=== PATIENT | female | born 1950 | race Caucasian/White ===

== ENCOUNTER 2016-09-06 14:34 | Inpatient (IN) | payer MEDICARE ==
[~2016-09-06] VITALS: Ht 152.4 cm; Wt 95.5 kg
[~2016-09-06 14:34] MED LIST: HYDR-3138 PO; MESA500C PO; MORP100S3 PO; OMEP40CA6 PO; PARO10TA3 PO; POTA10TA5 PO; WARF5TAB7 PO
[2016-09-06] MEDS: MORPHINE SULFATE 4 MG/ML, 1ML IV PRN ×2 (16:51→23:16)
[2016-09-06] MEDS: LORazepam 2 MG/ML, 1ML IV PRN (17:54)
[2016-09-06 17:59] LABS: ASPARTATE AMINO TRANSFERASE 50 U/L (15-37); BLOOD UREA NITROGEN 14 mg/dL (7-18)
[2016-09-06] MEDS: D5%-0.45NACL+KCL 20MEQ 1,000 ML IV SCH (18:15)
[2016-09-06 20:21] VITALS: BP 124/77
[2016-09-06] MEDS ORDERED: LIDOCAINE GEL 2%, 5ML TP ONE (22:30)
[2016-09-06] MEDS ORDERED: LORazepam 2 MG/ML, 1ML IVPush ONE (22:30)
[2016-09-07 02:45] VITALS: BP 127/71
[2016-09-07] MEDS: D5%-0.45NACL+KCL 20MEQ 1,000 ML IV SCH ×3 (04:38→15:43)
[2016-09-07] MEDS: MORPHINE SULFATE 4 MG/ML, 1ML IV PRN ×3 (04:39→18:10)
[2016-09-07] MEDS: LORazepam 2 MG/ML, 1ML IV PRN ×3 (04:39→22:07)
[2016-09-07] MEDS ORDERED: SODIUM CHLORIDE 0.9%, 500ML IVBOLUS ONE (05:30)
[2016-09-07 07:25] VITALS: BP 122/66
[2016-09-07] MEDS ORDERED: BENZOCAINE AEROSOL SPRAY 20%, 60ML TP PRN (10:00)
[2016-09-07 13:50] VITALS: BP 115/65
[2016-09-07 19:28] VITALS: BP 128/67
[2016-09-08 00:25] VITALS: BP 120/56
[2016-09-08] MEDS: MORPHINE SULFATE 4 MG/ML, 1ML IV PRN ×4 (00:45→20:27)
[2016-09-08] MEDS: D5%-0.45NACL+KCL 20MEQ 1,000 ML IV SCH ×2 (02:24→13:24)
[2016-09-08 06:01] LABS: BLOOD UREA NITROGEN 4 mg/dL (7-18)
[2016-09-08 07:54] VITALS: BP 121/72
[2016-09-08] MEDS: LORazepam 2 MG/ML, 1ML IV PRN ×2 (08:10→15:48)
[2016-09-08 14:28] VITALS: BP 140/79
[2016-09-08] MEDS ORDERED: TPN PER PHARMACY IV SCH (15:00)
[2016-09-08] MEDS ORDERED: DEXTROSE 50%, 50ML SYRINGE IVPush PRN (17:00)
[2016-09-08] MEDS ORDERED: DEXTROSE 10% 500 ML IV PRN (17:00)
[2016-09-08] MEDS: FILTER, DISP 1.2 MICRON FOR TPN/PVN IV PRN (17:11)
[2016-09-08] MEDS: D5%-0.45% NACL 1,000 ML IV SCH (17:11)
[2016-09-08] MEDS: [UNRECOGNIZED DRUG - OTHER] IV SCH (17:12)
[2016-09-08] MEDS: DEXTROSE 70% IV SCH (17:12)
[2016-09-08] MEDS: FAT EMULSIONS IV SCH (17:12)
[2016-09-08] MEDS: AMINO ACID 10% IV SCH (17:12)
[2016-09-08 20:19] VITALS: BP 143/72
[2016-09-09] MEDS: LORazepam 2 MG/ML, 1ML IV PRN ×3 (00:34→17:00)
[2016-09-09] MEDS: INSULIN REGULAR LOW DOSE Q6H X 48HRS SQ-INSULIN SCH ×4 (00:40→21:00)
[2016-09-09] MEDS: MORPHINE SULFATE 4 MG/ML, 1ML IV PRN ×4 (03:16→22:00)
[2016-09-09 03:23] VITALS: BP 134/68
[2016-09-09 06:20] LABS: ASPARTATE AMINO TRANSFERASE 49 U/L (15-37); BLOOD UREA NITROGEN 4 mg/dL (7-18)
[2016-09-09 10:19] LABS: BLOOD UREA NITROGEN 4 mg/dL (7-18)
[2016-09-09] MEDS: FAT EMULSIONS IV SCH (17:00)
[2016-09-09] MEDS: DEXTROSE 70% IV SCH (17:00)
[2016-09-09] MEDS: [UNRECOGNIZED DRUG - OTHER] IV SCH (17:00)
[2016-09-09] MEDS: AMINO ACID 10% IV SCH (17:00)
[2016-09-09] MEDS: FILTER, DISP 1.2 MICRON FOR TPN/PVN IV PRN (17:15)
[2016-09-10] MEDS: LORazepam 2 MG/ML, 1ML IV PRN ×3 (01:30→17:46)
[2016-09-10] MEDS: INSULIN REGULAR LOW DOSE Q6H X 48HRS SQ-INSULIN SCH ×4 (03:00→15:00)
[2016-09-10] MEDS: MORPHINE SULFATE 4 MG/ML, 1ML IV PRN ×4 (05:00→23:37)
[2016-09-10 13:15] VITALS: BP 131/82
[2016-09-10] MEDS: D5%-0.45% NACL 1,000 ML IV SCH (14:42)
[2016-09-10] MEDS ORDERED: FAT EMULSIONS IV SCH (17:00)
[2016-09-10] MEDS ORDERED: AMINO ACID 10% IV SCH (17:00)
[2016-09-10] MEDS ORDERED: [UNRECOGNIZED DRUG - OTHER] IV SCH (17:00)
[2016-09-10] MEDS ORDERED: DEXTROSE 70% IV SCH (17:00)
[2016-09-10] MEDS ORDERED: FILTER, DISP 1.2 MICRON FOR TPN/PVN IV SCH (17:00)
[2016-09-10 19:22] VITALS: BP 138/77
[2016-09-11 02:20] VITALS: BP 120/67
[2016-09-11] MEDS: LORazepam 2 MG/ML, 1ML IV PRN ×3 (04:06→20:27)
[2016-09-11 05:03] LABS: BLOOD UREA NITROGEN 15 mg/dL (7-18)
[2016-09-11] MEDS: MORPHINE SULFATE 4 MG/ML, 1ML IV PRN ×3 (05:54→17:56)
[2016-09-11 07:08] VITALS: BP 111/58
[2016-09-11] MEDS: INSULIN REGULAR LOW DOSE QDAY SQ-INSULIN SCH (09:00)
[2016-09-11 12:37] VITALS: BP 123/75
[2016-09-11] MEDS ORDERED: AMINO ACID 10% IV SCH (17:00)
[2016-09-11] MEDS ORDERED: FILTER, DISP 1.2 MICRON FOR TPN/PVN IV SCH (17:00)
[2016-09-11] MEDS ORDERED: [UNRECOGNIZED DRUG - OTHER] IV SCH (17:00)
[2016-09-11] MEDS ORDERED: DEXTROSE 70% IV SCH (17:00)
[2016-09-11] MEDS ORDERED: FAT EMULSIONS IV SCH (17:00)
[2016-09-11] MEDS ORDERED: ENOXAPARIN 80 MG/0.8 ML SQ ONE (18:00)
[2016-09-11 20:06] VITALS: BP 102/64
[2016-09-11] MEDS: D5%-0.45% NACL 1,000 ML IV SCH (20:38)
[2016-09-12] MEDS: MORPHINE SULFATE 4 MG/ML, 1ML IV PRN ×2 (00:22→06:19)
[2016-09-12 03:55] VITALS: BP 109/68
[2016-09-12] MEDS: LORazepam 2 MG/ML, 1ML IV PRN (04:16)
[2016-09-12] MEDS ORDERED: BUPIVACAINE/PF-EPI 0.25% 1:200K ONE (07:14)
[2016-09-12] MEDS ORDERED: MIDAZOLAM 1 MG/ML, 2ML ONE (07:20)
[2016-09-12] MEDS ORDERED: KETAMINE 10 MG/ML, 20ML ONE (07:20)
[2016-09-12] MEDS ORDERED: FENTANYL PF 250 MCG/5ML ONE ×2 (07:21→10:17)
[2016-09-12] MEDS ORDERED: ONDANSETRON 2MG/ML, 2ML ONE (07:39)
[2016-09-12] MEDS ORDERED: PROPOFOL 10 MG/ML, 20ML ONE (07:39)
[2016-09-12] MEDS ORDERED: SUCCINYLCHOLINE 20 MG/ML, 10ML ONE (07:39)
[2016-09-12] MEDS ORDERED: EPHEDRINE 50 MG/ML, 1ML ONE (07:39)
[2016-09-12] MEDS ORDERED: ROCURONIUM 10 MG/ML ONE (07:39)
[2016-09-12] MEDS ORDERED: DEXAMETHASONE 4 MG/ML, 1ML ONE (07:39)
[2016-09-12] MEDS ORDERED: CEFOTETAN 1 GM ONE (07:39)
[2016-09-12] MEDS ORDERED: CEFOTETAN 2 GM ONE (07:39)
[2016-09-12] MEDS ORDERED: GLYCOPYRROLATE 0.2MG/1ML ONE (07:39)
[2016-09-12] MEDS ORDERED: LABETALOL 5MG/ML, 20ML ONE (07:39)
[2016-09-12] MEDS ORDERED: NEOSTIGMINE 1 MG/ML, 10ML ONE (07:39)
[2016-09-12] MEDS ORDERED: PHENYLEPHRINE 10 MG/ML ONE (07:39)
[2016-09-12] MEDS ORDERED: HYDROmorphone 1 MG/ML, 1ML ONE ×2 (08:15→11:03)
[2016-09-12] MEDS: INSULIN REGULAR LOW DOSE QDAY SQ-INSULIN SCH ×2 (09:00→09:07)
[2016-09-12] MEDS ORDERED: HEPARIN 5,000 UNITS/ML, 1ML ONE (10:28)
[2016-09-12] MEDS ORDERED: FENTANYL PF 100 MCG/2ML ONE (12:23)
[2016-09-12] MEDS: FENTANYL PF 100 MCG/2ML IV PRN ×3 (12:45→13:10)
[2016-09-12] MEDS ORDERED: HYDROmorphone 1 MG/ML, 1ML IV PRN ×2 (13:30→14:30)
[2016-09-12 14:29] VITALS: BP 134/75
[2016-09-12] MEDS ORDERED: DIPHENHYDRAMINE 25 MG CAPSULE PO PRN (14:30)
[2016-09-12] MEDS ORDERED: LORazepam 2 MG/ML, 1ML IV PRN (14:30)
[2016-09-12] MEDS ORDERED: LORazepam 1MG TABLET PO PRN (14:30)
[2016-09-12] MEDS ORDERED: POTASSIUM CHLORIDE 20 MEQ in D5%-0.45% NACL 1,000 ML IV SCH (14:30)
[2016-09-12] MEDS: ACETAMINOPHEN 500 MG TABLET PO SCH ×2 (16:34→21:02)
[2016-09-12] MEDS: IBUPROFEN 600 MG TABLET PO SCH ×2 (16:34→20:22)
[2016-09-12] MEDS: OXYcodone 5 MG/5 ML ORAL.SOL UDC PO PRN ×2 (16:42→21:02)
[2016-09-12] MEDS ORDERED: [UNRECOGNIZED DRUG - OTHER] IV SCH (17:00)
[2016-09-12] MEDS ORDERED: AMINO ACID 10% IV SCH (17:00)
[2016-09-12] MEDS ORDERED: DEXTROSE 70% IV SCH (17:00)
[2016-09-12] MEDS ORDERED: FAT EMULSIONS IV SCH (17:00)
[2016-09-12] MEDS: FILTER, DISP 1.2 MICRON FOR TPN/PVN IV SCH (17:06)
[2016-09-12] MEDS: ENOXAPARIN 40 MG/0.4 ML SQ SCH (18:16)
[2016-09-12 18:47] VITALS: BP 143/75
[2016-09-12] MEDS: CEFOTETAN PMX 2GM/50ML 50 ML IVPB SCH (19:30)
[2016-09-12] MEDS: HYDROmorphone 1 MG/ML, 1ML IV PRN ×3 (19:30→22:44)
[2016-09-12] MEDS: FAMOTIDINE 20 MG TABLET PO SCH (20:23)
[2016-09-13 00:26] VITALS: BP 141/67
[2016-09-13] MEDS: LORazepam 2 MG/ML, 1ML IV PRN ×2 (00:36→09:04)
[2016-09-13] MEDS: OXYcodone 5 MG/5 ML ORAL.SOL UDC PO PRN ×6 (01:10→22:25)
[2016-09-13] MEDS: ACETAMINOPHEN 500 MG TABLET PO SCH ×4 (02:33→20:59)
[2016-09-13 04:23] VITALS: BP 128/59
[2016-09-13 06:15] LABS: ASPARTATE AMINO TRANSFERASE 49 U/L (15-37); BLOOD UREA NITROGEN 13 mg/dL (7-18)
[2016-09-13 07:46] VITALS: BP 137/67
[2016-09-13] MEDS: FAMOTIDINE 20 MG TABLET PO SCH ×2 (09:03→20:59)
[2016-09-13] MEDS: CEFOTETAN PMX 2GM/50ML 50 ML IVPB SCH (09:03)
[2016-09-13] MEDS: PAROXETINE 10 MG TABLET PO SCH (09:04)
[2016-09-13] MEDS: IBUPROFEN 600 MG TABLET PO SCH ×3 (09:04→21:00)
[2016-09-13 09:29] LABS: BLOOD UREA NITROGEN 13 mg/dL (7-18)
[2016-09-13] MEDS: D5%-0.45% NACL 1,000 ML IV SCH (10:26)
[2016-09-13] MEDS: INSULIN REGULAR LOW DOSE QDAY SQ-INSULIN SCH (10:27)
[2016-09-13 11:54] LABS: BLOOD UREA NITROGEN 12 mg/dL (7-18)
[2016-09-13 15:15] VITALS: BP 141/78
[2016-09-13] MEDS: FILTER, DISP 1.2 MICRON FOR TPN/PVN IV SCH (16:50)
[2016-09-13] MEDS ORDERED: AMINO ACID 10% IV SCH (17:00)
[2016-09-13] MEDS ORDERED: [UNRECOGNIZED DRUG - OTHER] IV SCH (17:00)
[2016-09-13] MEDS ORDERED: DEXTROSE 70% IV SCH (17:00)
[2016-09-13] MEDS ORDERED: FAT EMULSIONS IV SCH (17:00)
[2016-09-13] MEDS: ENOXAPARIN 40 MG/0.4 ML SQ SCH (17:40)
[2016-09-13 18:38] VITALS: BP 120/59
[2016-09-14 01:11] VITALS: BP 107/54
[2016-09-14] MEDS: ACETAMINOPHEN 500 MG TABLET PO SCH ×4 (02:46→21:57)
[2016-09-14] MEDS: OXYcodone 5 MG/5 ML ORAL.SOL UDC PO PRN ×4 (02:47→19:13)
[2016-09-14] MEDS: D5%-0.45% NACL 1,000 ML IV SCH (05:53)
[2016-09-14 06:33] LABS: BLOOD UREA NITROGEN 10 mg/dL (7-18)
[2016-09-14 06:46] LABS: ASPARTATE AMINO TRANSFERASE 45 U/L (15-37)
[2016-09-14 08:20] VITALS: BP 119/80
[2016-09-14] MEDS ORDERED: DEXTROSE 70% IV SCH ×2 (09:00→17:00)
[2016-09-14] MEDS ORDERED: AMINO ACID 10% IV SCH ×2 (09:00→17:00)
[2016-09-14] MEDS ORDERED: [UNRECOGNIZED DRUG - OTHER] IV SCH ×2 (09:00→17:00)
[2016-09-14] MEDS ORDERED: FAT EMULSIONS IV SCH ×2 (09:00→17:00)
[2016-09-14] MEDS: INSULIN REGULAR LOW DOSE QDAY SQ-INSULIN SCH (09:07)
[2016-09-14] MEDS: PAROXETINE 10 MG TABLET PO SCH (10:06)
[2016-09-14] MEDS: FAMOTIDINE 20 MG TABLET PO SCH ×2 (10:06→21:57)
[2016-09-14] MEDS: IBUPROFEN 600 MG TABLET PO SCH ×2 (10:12→18:37)
[2016-09-14 12:50] VITALS: BP 106/67
[2016-09-14] MEDS: ENOXAPARIN 100 MG/ML SQ SCH (14:56)
[2016-09-14] MEDS: DIPHENHYDRAMINE 50 MG/ML, 1ML IV PRN (14:56)
[2016-09-14] MEDS: FILTER, DISP 1.2 MICRON FOR TPN/PVN IV SCH (18:34)
[2016-09-14] MEDS: WARFARIN 5 MG TABLET PO-COUM SCH (18:39)
[2016-09-14 19:45] VITALS: BP 111/56
[2016-09-15] MEDS: IBUPROFEN 600 MG TABLET PO SCH ×5 (01:09→20:46)
[2016-09-15 01:49] VITALS: BP 127/63
[2016-09-15] MEDS: D5%-0.45% NACL 1,000 ML IV SCH (03:15)
[2016-09-15] MEDS: OXYcodone 5 MG/5 ML ORAL.SOL UDC PO PRN ×5 (03:22→21:35)
[2016-09-15] MEDS: ENOXAPARIN 100 MG/ML SQ SCH ×2 (03:22→15:16)
[2016-09-15] MEDS: ACETAMINOPHEN 500 MG TABLET PO SCH ×3 (05:26→17:53)
[2016-09-15 06:13] LABS: BLOOD UREA NITROGEN 9 mg/dL (7-18)
[2016-09-15 06:17] LABS: ASPARTATE AMINO TRANSFERASE 32 U/L (15-37)
[2016-09-15] MEDS: FAMOTIDINE 20 MG TABLET PO SCH ×2 (08:21→20:39)
[2016-09-15] MEDS: PAROXETINE 10 MG TABLET PO SCH (08:21)
[2016-09-15 13:55] VITALS: BP 138/76
[2016-09-15] MEDS: WARFARIN 5 MG TABLET PO-COUM SCH (17:53)
[2016-09-15 19:47] VITALS: BP 130/57
[2016-09-15] MEDS: SODIUM CHLORIDE FLUSH 3ML SYRINGE IVF SCH (20:40)
[2016-09-16 02:29] VITALS: BP 116/61
[2016-09-16] MEDS: ENOXAPARIN 100 MG/ML SQ SCH ×2 (04:57→18:14)
[2016-09-16] MEDS: ACETAMINOPHEN 500 MG TABLET PO SCH ×4 (04:57→23:56)
[2016-09-16] MEDS: OXYcodone 5 MG/5 ML ORAL.SOL UDC PO PRN ×5 (04:57→22:54)
[2016-09-16 06:04] LABS: ASPARTATE AMINO TRANSFERASE 23 U/L (15-37); BLOOD UREA NITROGEN 7 mg/dL (7-18)
[2016-09-16 06:46] VITALS: BP 112/70
[2016-09-16] MEDS: SODIUM CHLORIDE FLUSH 3ML SYRINGE IVF SCH ×2 (09:00→21:00)
[2016-09-16] MEDS: FAMOTIDINE 20 MG TABLET PO SCH ×2 (09:40→21:20)
[2016-09-16] MEDS: IBUPROFEN 600 MG TABLET PO SCH ×3 (09:40→21:20)
[2016-09-16] MEDS: PAROXETINE 10 MG TABLET PO SCH (09:40)
[2016-09-16 12:45] LABS: BLOOD UREA NITROGEN 9 mg/dL (7-18)
[2016-09-16 12:54] VITALS: BP 109/68
[2016-09-16] MEDS: WARFARIN 5 MG TABLET PO-COUM SCH (18:14)
[2016-09-16 20:02] VITALS: BP 110/69
[2016-09-17 03:27] VITALS: BP 105/51
[2016-09-17] MEDS: ACETAMINOPHEN 500 MG TABLET PO SCH ×2 (04:12→12:00)
[2016-09-17] MEDS: OXYcodone 5 MG/5 ML ORAL.SOL UDC PO PRN ×3 (04:13→13:27)
[2016-09-17] MEDS: DIPHENHYDRAMINE 50 MG/ML, 1ML IV PRN (04:13)
[2016-09-17] MEDS: ENOXAPARIN 100 MG/ML SQ SCH (04:14)
[2016-09-17 05:01] LABS: ASPARTATE AMINO TRANSFERASE 19 U/L (15-37); BLOOD UREA NITROGEN 10 mg/dL (7-18)
[2016-09-17 07:45] VITALS: BP 132/75
[2016-09-17] MEDS: SODIUM CHLORIDE FLUSH 3ML SYRINGE IVF SCH (09:00)
[2016-09-17] MEDS: PAROXETINE 10 MG TABLET PO SCH (09:10)
[2016-09-17] MEDS: IBUPROFEN 600 MG TABLET PO SCH (09:10)
[2016-09-17] MEDS: FAMOTIDINE 20 MG TABLET PO SCH (09:10)
[2016-09-17 12:00] VITALS: BP 113/61
== END 2016-09-17 16:34 | disposition home or self-care (01) | DRG 329 ==
LOC: 4NOR 15:00
PROVIDERS: ADMIT Surgery; ATTEND Surgery
PROC: 02HV33Z Insertion of Infusion Device into Superior Vena Cava, Percutaneous Approach (ICD-10-PCS; 2016-09-07)
PROC: B5181ZA Fluoroscopy of Superior Vena Cava using Low Osmolar Contrast, Guidance (ICD-10-PCS; 2016-09-07)
PROC: 0D1N4Z4 Bypass Sigmoid Colon to Cutaneous, Percutaneous Endoscopic Approach (ICD-10-PCS; 2016-09-12)
PROC: 0DBN4ZZ Excision of Sigmoid Colon, Percutaneous Endoscopic Approach (ICD-10-PCS; 2016-09-12)
PROC: 8E0W4CZ Robotic Assisted Procedure of Trunk Region, Percutaneous Endoscopic Approach (ICD-10-PCS; 2016-09-12)
PROC: 0DBP4ZZ Excision of Rectum, Percutaneous Endoscopic Approach (ICD-10-PCS; 2016-09-12)
PROC: 0DBF4ZZ Excision of Right Large Intestine, Percutaneous Endoscopic Approach (ICD-10-PCS; 2016-09-12)
PROC: 0DTH4ZZ Resection of Cecum, Percutaneous Endoscopic Approach (ICD-10-PCS; principal; 2016-09-12 07:30)
DX: K50.00 Crohn's disease of small intestine without complications (principal); E43 Unspecified severe protein-calorie malnutrition; K56.60 Unspecified intestinal obstruction; N82.3 Fistula of vagina to large intestine; Z68.41 Body mass index [BMI] 40.0-44.9, adult; Z79.01 Long term (current) use of anticoagulants; Z86.711 Personal history of pulmonary embolism; Z86.718 Personal history of other venous thrombosis and embolism
CPT/HCPCS: 36415; 36569; 74000; 76937; 77001; 80048; 80053; 82962; 83735; 84100; 84134; 84478; 85025; 85610; 85730; 86850; 86900; 86923; 88307; C1729; J0610; J1100; J1170; J1644; J1650; J1815; J2250; J2405; J2704; J2710; J3010; J3475; J3480; J3490; C1751; C1765; J0330; J1200; J2060; J2370; J3420; J7040; S0074

== ENCOUNTER 2016-09-24 22:47 | Inpatient (IN) | payer MEDICARE ==
[~2016-09-24] VITALS: Ht 152.4 cm; Wt 94.5 kg
[2016-09-24 23:12] VITALS: BP 94/56
[2016-09-24 23:24] VITALS: BP 94/56
[2016-09-24] MEDS ORDERED: PLEASE ENTER HEIGHT AND WEIGHT MC SCH (23:30)
[2016-09-25] MEDS: PIPERACILLIN/TAZO/PMX 3.375GM 50 ML IV SCH ×4 (00:32→18:18)
[2016-09-25] MEDS: D5%-0.45NACL+KCL 20MEQ 1,000 ML IV SCH ×3 (00:32→21:32)
[2016-09-25] MEDS: ONDANSETRON 2MG/ML, 2ML IVPush PRN ×3 (00:32→17:30)
[2016-09-25] MEDS: morphine SULFATE 10 MG/ML, 1ML IVPush PRN ×6 (00:32→18:18)
[2016-09-25] MEDS: ACETAMINOPHEN 500 MG TABLET PO SCH ×4 (00:35→18:18)
[2016-09-25 02:58] VITALS: BP 104/45
[2016-09-25 06:58] LABS: DIFF TOTAL CELLS COUNTED 100 CELL DIFF
[2016-09-25 07:00] LABS: ANISOCYTOSIS 1+; ASPARTATE AMINO TRANSFERASE 46 U/L (15-37); BLOOD UREA NITROGEN 18 mg/dL (7-18); VERIFY COUNTS? YES
[2016-09-25] MEDS ORDERED: LORazepam 2 MG/ML, 1ML IVPush PRN (07:00)
[2016-09-25 07:18] VITALS: BP 90/56
[2016-09-25] MEDS: LORazepam 2 MG/ML, 1ML IVPush PRN ×3 (08:53→21:46)
[2016-09-25] MEDS ORDERED: OMNIPAQUE 350 MG/ML, 100ML BOTTLE ONE (10:26)
[2016-09-25 13:50] VITALS: BP 89/50
[2016-09-25 16:18] VITALS: BP 101/60
[2016-09-25] MEDS ORDERED: ENOXAPARIN 40 MG/0.4 ML SQ SCH (18:00)
[2016-09-25 20:30] VITALS: BP 86/49
[2016-09-25] MEDS ORDERED: SODIUM CHLORIDE 0.9% 1,000ML IVBOLUS ONE (21:30)
[2016-09-26] MEDS: PIPERACILLIN/TAZO/PMX 3.375GM 50 ML IV SCH ×5 (00:24→23:38)
[2016-09-26] MEDS: ONDANSETRON 2MG/ML, 2ML IVPush PRN ×2 (00:25→05:53)
[2016-09-26] MEDS: ACETAMINOPHEN 500 MG TABLET PO SCH ×5 (00:25→23:30)
[2016-09-26 01:44] VITALS: BP 94/62
[2016-09-26 01:53] LABS: BLOOD UREA NITROGEN 15 mg/dL (7-18)
[2016-09-26 01:58] LABS: DIFF TOTAL CELLS COUNTED 100 CELL DIFF
[2016-09-26 02:00] LABS: ANISOCYTOSIS 1+
[2016-09-26 02:01] LABS: VERIFY COUNTS? YES
[2016-09-26] MEDS: morphine SULFATE 10 MG/ML, 1ML IVPush PRN ×5 (04:00→22:48)
[2016-09-26] MEDS: LORazepam 2 MG/ML, 1ML IVPush PRN ×2 (04:00→20:07)
[2016-09-26 08:30] VITALS: BP 109/65
[2016-09-26] MEDS: D5%-0.45NACL+KCL 20MEQ 1,000 ML IV SCH ×2 (09:56→20:30)
[2016-09-26] MEDS: ENOXAPARIN 80 MG/0.8 ML SQ SCH ×2 (11:57→23:38)
[2016-09-26 16:46] VITALS: BP 107/69
[2016-09-26 18:29] VITALS: BP 96/63
[2016-09-27 00:59] VITALS: BP 96/60
[2016-09-27] MEDS: morphine SULFATE 10 MG/ML, 1ML IVPush PRN ×5 (03:32→22:08)
[2016-09-27] MEDS: LORazepam 2 MG/ML, 1ML IVPush PRN (03:32)
[2016-09-27 05:39] LABS: BLOOD UREA NITROGEN 6 mg/dL (7-18)
[2016-09-27] MEDS: ACETAMINOPHEN 500 MG TABLET PO SCH ×4 (06:03→22:47)
[2016-09-27] MEDS: PIPERACILLIN/TAZO/PMX 3.375GM 50 ML IV SCH ×4 (06:03→23:47)
[2016-09-27] MEDS: D5%-0.45NACL+KCL 20MEQ 1,000 ML IV SCH ×3 (06:03→23:47)
[2016-09-27 07:43] VITALS: BP 94/62
[2016-09-27] MEDS: POTASSIUM CHLORIDE 20 MEQ TAB.ER.PRT PO SCH ×2 (10:27→17:17)
[2016-09-27 13:32] VITALS: BP 92/59
[2016-09-27] MEDS: ONDANSETRON 2MG/ML, 2ML IVPush PRN (13:39)
[2016-09-27] MEDS: PAROXETINE 10 MG TABLET PO SCH (17:17)
[2016-09-27] MEDS: CYCLOBENZAPRINE 10 MG TABLET PO PRN (17:53)
[2016-09-27 21:26] VITALS: BP 107/58
[2016-09-28] MEDS: morphine SULFATE 10 MG/ML, 1ML IVPush PRN ×2 (01:32→05:41)
[2016-09-28 02:47] VITALS: BP 104/54
[2016-09-28] MEDS: ACETAMINOPHEN 500 MG TABLET PO SCH (04:56)
[2016-09-28] MEDS: PIPERACILLIN/TAZO/PMX 3.375GM 50 ML IV SCH ×3 (05:43→18:08)
[2016-09-28 06:11] LABS: BLOOD UREA NITROGEN 3 mg/dL (7-18)
[2016-09-28 06:43] VITALS: BP 98/62
[2016-09-28] MEDS ORDERED: morphine SULFATE 10 MG/ML, 1ML IVPush PRN (09:32)
[2016-09-28] MEDS: POTASSIUM CHLORIDE 20 MEQ TAB.ER.PRT PO SCH ×2 (10:11→18:08)
[2016-09-28] MEDS: PAROXETINE 10 MG TABLET PO SCH (10:11)
[2016-09-28] MEDS: OXYcodone/APAP 5/325MG TABLET PO PRN ×4 (10:12→22:06)
[2016-09-28 12:23] VITALS: BP 98/61
[2016-09-28] MEDS: D5%-0.45NACL+KCL 20MEQ 1,000 ML IV SCH ×2 (12:28→22:06)
[2016-09-28 18:53] VITALS: BP 110/68
[2016-09-28] MEDS: CYCLOBENZAPRINE 10 MG TABLET PO PRN (20:17)
[2016-09-29] MEDS: PIPERACILLIN/TAZO/PMX 3.375GM 50 ML IV SCH ×4 (00:23→17:35)
[2016-09-29] MEDS: OXYcodone/APAP 5/325MG TABLET PO PRN ×6 (02:09→22:40)
[2016-09-29 02:16] VITALS: BP 99/65
[2016-09-29] MEDS: CYCLOBENZAPRINE 10 MG TABLET PO PRN ×2 (05:38→14:42)
[2016-09-29] MEDS: D5%-0.45NACL+KCL 20MEQ 1,000 ML IV SCH (05:43)
[2016-09-29 05:50] LABS: BLOOD UREA NITROGEN 3 mg/dL (7-18)
[2016-09-29 06:47] VITALS: BP 90/55
[2016-09-29] MEDS ORDERED: OMNIPAQUE 350 MG/ML, 100ML BOTTLE ONE (08:37)
[2016-09-29] MEDS: POTASSIUM CHLORIDE 20 MEQ TAB.ER.PRT PO SCH ×2 (08:45→17:37)
[2016-09-29] MEDS: PAROXETINE 10 MG TABLET PO SCH (08:45)
[2016-09-29 14:11] VITALS: BP 107/65
[2016-09-29] MEDS: WARFARIN 5 MG TABLET PO-COUM SCH (17:39)
[2016-09-29 19:20] VITALS: BP 100/51
[2016-09-30] MEDS: PIPERACILLIN/TAZO/PMX 3.375GM 50 ML IV SCH ×5 (00:01→23:47)
[2016-09-30 02:00] VITALS: BP 115/64
[2016-09-30] MEDS: OXYcodone/APAP 5/325MG TABLET PO PRN ×5 (04:32→20:59)
[2016-09-30 05:48] LABS: BLOOD UREA NITROGEN 3 mg/dL (7-18)
[2016-09-30] MEDS: PAROXETINE 10 MG TABLET PO SCH (08:37)
[2016-09-30] MEDS: POTASSIUM CHLORIDE 20 MEQ TAB.ER.PRT PO SCH ×2 (08:37→16:32)
[2016-09-30 08:57] VITALS: BP 111/70
[2016-09-30] MEDS: ONDANSETRON 2MG/ML, 2ML IVPush PRN (11:33)
[2016-09-30 13:44] VITALS: BP 138/55
[2016-09-30 14:49] VITALS: BP 105/64
[2016-09-30] MEDS: WARFARIN 5 MG TABLET PO-COUM SCH (18:04)
[2016-09-30 19:01] VITALS: BP 118/70
[2016-10-01] MEDS: OXYcodone/APAP 5/325MG TABLET PO PRN ×5 (02:09→20:10)
[2016-10-01 03:14] VITALS: BP 110/67
[2016-10-01] MEDS: PIPERACILLIN/TAZO/PMX 3.375GM 50 ML IV SCH ×3 (06:26→18:17)
[2016-10-01 06:34] LABS: BLOOD UREA NITROGEN 3 mg/dL (7-18)
[2016-10-01] MEDS: POTASSIUM CHLORIDE 20 MEQ TAB.ER.PRT PO SCH ×2 (07:40→20:10)
[2016-10-01 07:42] VITALS: BP 117/72
[2016-10-01] MEDS: PAROXETINE 10 MG TABLET PO SCH (09:17)
[2016-10-01 13:48] VITALS: BP 119/70
[2016-10-01] MEDS: CYCLOBENZAPRINE 10 MG TABLET PO PRN (16:43)
[2016-10-01] MEDS: WARFARIN 5 MG TABLET PO-COUM SCH (17:25)
[2016-10-01 19:40] VITALS: BP 128/53
[2016-10-02] MEDS: PIPERACILLIN/TAZO/PMX 3.375GM 50 ML IV SCH ×5 (00:14→18:28)
[2016-10-02] MEDS: OXYcodone/APAP 5/325MG TABLET PO PRN ×5 (00:14→19:10)
[2016-10-02 02:44] VITALS: BP 124/70
[2016-10-02 05:09] LABS: BLOOD UREA NITROGEN 5 mg/dL (7-18)
[2016-10-02 07:00] VITALS: BP 121/74
[2016-10-02] MEDS: POTASSIUM CHLORIDE 20 MEQ TAB.ER.PRT PO SCH ×2 (08:03→16:59)
[2016-10-02] MEDS: PAROXETINE 10 MG TABLET PO SCH (08:04)
[2016-10-02 12:30] VITALS: BP 117/78
[2016-10-02] MEDS: metroNIDAZOLE 500 MG TABLET PO SCH (18:02)
[2016-10-02 19:05] VITALS: BP 124/66
[2016-10-02] MEDS: AMOXICILLIN/CLAV 875-125MG TABLET PO SCH (21:06)
[2016-10-02] MEDS: CIPROFLOXACIN 500 MG TABLET PO SCH (21:06)
[2016-10-02] MEDS ORDERED: ONDANSETRON 4 MG TABLET PO PRN (23:30)
[2016-10-03] MEDS: OXYcodone/APAP 5/325MG TABLET PO PRN ×2 (00:43→08:41)
[2016-10-03] MEDS: metroNIDAZOLE 500 MG TABLET PO SCH ×2 (00:43→08:40)
[2016-10-03 03:12] VITALS: BP 120/65
[2016-10-03 06:13] LABS: BLOOD UREA NITROGEN 3 mg/dL (7-18)
[2016-10-03 08:30] VITALS: BP 113/60
[2016-10-03] MEDS: CIPROFLOXACIN 500 MG TABLET PO SCH (08:40)
[2016-10-03] MEDS: PAROXETINE 10 MG TABLET PO SCH (08:41)
[2016-10-03] MEDS: AMOXICILLIN/CLAV 875-125MG TABLET PO SCH (08:41)
[2016-10-03] MEDS: POTASSIUM CHLORIDE 20 MEQ TAB.ER.PRT PO SCH (08:41)
[2016-10-03] MEDS ORDERED: AMOX1TAB64 PO (10:21)
[2016-10-03] MEDS ORDERED: CYCL-259 PO (10:29)
[2016-10-03] MEDS ORDERED: OXYC-302 PO (10:31)
[2016-10-03 12:30] VITALS: BP 118/57
== END 2016-10-03 12:25 | disposition home or self-care (01) | DRG 393 ==
LOC: 4NOR 22:47
PROVIDERS: ADMIT Surgery; ATTEND Surgery
DX: K91.89 Other postprocedural complications and disorders of digestive system (principal); E43 Unspecified severe protein-calorie malnutrition; K50.812 Crohn's disease of both small and large intestine with intestinal obstruction; N82.3 Fistula of vagina to large intestine; Z68.41 Body mass index [BMI] 40.0-44.9, adult; Y83.8 Other surgical procedures as the cause of abnormal reaction of the patient, or of later complication, without mention of misadventure at the time of the procedure; F17.200 Nicotine dependence, unspecified, uncomplicated; J44.9 Chronic obstructive pulmonary disease, unspecified; Z90.49 Acquired absence of other specified parts of digestive tract; Z93.3 Colostomy status; Z82.49 Family history of ischemic heart disease and other diseases of the circulatory system; Z82.3 Family history of stroke; Z86.718 Personal history of other venous thrombosis and embolism
CPT/HCPCS: 36415; 71010; 74177; 80048; 80053; 81003; 83605; 85025; 85610; 87040; 87324; J1650; J2405; J2543; Q0162; Q9967; J2060; J2270; J3480; J7030